=== PATIENT | male | born 1980 | race African-American/Black ===

== ENCOUNTER 2019-03-03 23:17 | Emergency (ER) | payer SELFPAY ==
[~2019-03-03] VITALS: Ht 182.9 cm; Wt 81.6 kg
[~2019-03-03 23:17] MED LIST: ALBU8.5H6 IH; ALPR0.25 PO; FLUT10.6 IH; HYDR-2761 PO
[2019-03-03 23:29] LABS: BASO # 0.1 x10^3/uL (0.0-0.2); BASO % 1 % (0-3); EOS # 0.4 x10^3/uL (0.0-0.7); EOS % 7 % (0-3); HEMATOCRIT 38.5 % (39.0-53.0); HEMOGLOBIN 13.1 g/dL (13.0-17.5); LYMPH # 3.1 x10^3/uL (1.0-4.8); LYMPH % 55 % (24-48); MEAN CORPUSCULAR HEMOGLOBIN 34 pg (25-35); MEAN CORPUSCULAR HGB CONC 34 g/dL (31-37); MEAN CORPUSCULAR VOLUME 100 fL (79-100); MONO # 0.5 x10^3/uL (0.0-1.1); MONO % 8 % (0-9); NEUT # 1.7 x10^3/uL (1.8-7.7); NEUT % 29 % (31-73); PLATELET COUNT 195 x10^3/uL (140-400); RED BLOOD COUNT 3.85 x10^6/uL (4.30-5.70); RED CELL DISTRIBUTION WIDTH 13.4 % (11.5-14.5); WHITE BLOOD COUNT 5.7 x10^3/uL (4.0-11.0)
[2019-03-03] MEDS ORDERED: IV NORMAL SALINE 1000ML BAG 1,000 ML IV ONE (23:30)
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
[2019-03-03 23:39] LABS: CALCIUM 8.8 mg/dL (8.5-10.1); CREATININE 0.7 mg/dL (0.7-1.3); GFR 126.9
[2019-03-03 23:45] LABS: ALBUMIN 3.8 g/dL (3.4-5.0); ALBUMIN/GLOBULIN RATIO 0.8 (1.0-1.7); TOTAL BILIRUBIN 0.4 mg/dL (0.2-1.0); TOTAL PROTEIN 8.4 g/dL (6.4-8.2)
[2019-03-03 23:51] LABS: ACETAMIN < 2 mcg/ml (10-30); SALIC 5.1 mg/dL (2.8-20.0)
[2019-03-03 23:53] LABS: ETHANOL 468 mg/dL (0-10)
[2019-03-04 04:37] VITALS: BP 117/58
== END 2019-03-04 05:00 | disposition home or self-care (01) ==
LOC: ER 23:17 → MERGE 23:17 → ER 03-04 05:00
DX: F10.129 Alcohol abuse with intoxication, unspecified (principal); F91.8 Other conduct disorders
CPT/HCPCS: 36415; 80053; 80329; 85025; 99285; G0480; J7030; 96360; 99284-25

== ENCOUNTER 2019-03-14 23:57 | Emergency (ER) | payer SELFPAY ==
[~2019-03-14] VITALS: Ht 182.9 cm; Wt 93.0 kg
[2019-03-15 00:05] VITALS: BP 113/84
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
[2019-03-15] MEDS ORDERED: ACETAMINOPHEN 500 MG TABLET PO ONE (00:15)
--- NOTE | 2019-03-15 00:46 | RAD ---
EXAM: AP and lateral views left ankle DATE: 03/15/2019 12:10 AM INDICATION: Left ankle pain COMPARISON: No Prior FINDINGS IMPRESSION: There is an oblique fracture through the distal fibular diametaphysis, essentially nondisplaced. Midfoot degenerative changes are seen with small osteophytes. Soft tissue swelling about the left ankle at the plantar aspect of the calcaneus. Electronically signed by: Antoni Lacey MD (03/15/2019 12:42 AM) [facility]
== END 2019-03-15 01:10 | disposition home or self-care (01) ==
LOC: ER 23:57
DX: S82.435A Nondisplaced oblique fracture of shaft of left fibula, initial encounter for closed fracture (principal); J45.909 Unspecified asthma, uncomplicated; F12.90 Cannabis use, unspecified, uncomplicated; K21.9 Gastro-esophageal reflux disease without esophagitis; Z91.018 Allergy to other foods; Z88.8 Allergy status to other drugs, medicaments and biological substances; Y08.89XA Assault by other specified means, initial encounter; Y93.89 Activity, other specified; Y92.89 Other specified places as the place of occurrence of the external cause; Y99.8 Other external cause status
CPT/HCPCS: 29515; 73600; 99284

== ENCOUNTER 2020-01-22 19:24 | Emergency (ER) | payer SELFPAY ==
[~2020-01-22] VITALS: Ht 177.8 cm; Wt 86.3 kg
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
[2020-01-22] MEDS ORDERED: MULTIVIT INFUSN,ADULT 4,VIT K 10 ML, THIAMINE INJ 100 MG, FOLIC ACID INJ 1 MG in IV NOR... IV ONE (20:00)
[2020-01-22 20:11] LABS: BASO % 1 % (0-3); EOS # 0.1 x10^3/uL (0.0-0.7); EOS % 1 % (0-3); HEMATOCRIT 38.5 % (39.0-53.0); HEMOGLOBIN 13.2 g/dL (13.0-17.5); LYMPH # 1.6 x10^3/uL (1.0-4.8); LYMPH % 28 % (24-48); MEAN CORPUSCULAR HEMOGLOBIN 33 pg (25-35); MEAN CORPUSCULAR HGB CONC 34 g/dL (31-37); MEAN CORPUSCULAR VOLUME 95 fL (79-100); MONO # 0.6 x10^3/uL (0.0-1.1); MONO % 11 % (0-9); NEUT # 3.3 x10^3/uL (1.8-7.7); NEUT % 59 % (31-73); PLATELET COUNT 223 x10^3/uL (140-400); RED BLOOD COUNT 4.05 x10^6/uL (4.30-5.70); RED CELL DISTRIBUTION WIDTH 15.5 % (11.5-14.5); WHITE BLOOD COUNT 5.6 x10^3/uL (4.0-11.0)
[2020-01-22 20:21] LABS: CALCIUM 9.1 mg/dL (8.5-10.1); CREATININE 0.8 mg/dL (0.7-1.3); GFR 131.6; POTASSIUM 3.3 mmol/L (3.5-5.1)
[2020-01-22 20:27] LABS: ALBUMIN 4.1 g/dL (3.4-5.0); ALBUMIN/GLOBULIN RATIO 0.8 (1.0-1.7); MAGNESIUM 1.8 mg/dL (1.8-2.4); TOTAL BILIRUBIN 0.9 mg/dL (0.2-1.0)
[2020-01-23 05:01] VITALS: BP 120/72
== END 2020-01-23 06:21 | disposition home or self-care (01) ==
LOC: ER 19:24
DX: S00.83XA Contusion of other part of head, initial encounter (principal); F10.229 Alcohol dependence with intoxication, unspecified; R60.0 Localized edema; L53.9 Erythematous condition, unspecified; J45.909 Unspecified asthma, uncomplicated; K21.9 Gastro-esophageal reflux disease without esophagitis; F17.200 Nicotine dependence, unspecified, uncomplicated; F12.90 Cannabis use, unspecified, uncomplicated; Z91.018 Allergy to other foods; Z88.8 Allergy status to other drugs, medicaments and biological substances; Z98.890 Other specified postprocedural states; Y08.89XA Assault by other specified means, initial encounter; Y93.89 Activity, other specified; Y92.89 Other specified places as the place of occurrence of the external cause; Y99.8 Other external cause status
CPT/HCPCS: 36415; 80053; 83735; 85025; 96365; 96375; 99285; G0480; J2060; J3411; J3490; J7030